=== PATIENT | female | born 1935 | race Caucasian/White ===

== ENCOUNTER 2016-09-28 06:21 | Day surgery (SDC) | payer OTHER ==
[2016-09-13 16:25] VITALS: BMI 23.1
[2016-09-28] MEDS ORDERED: BETAXOLOL HCL 0.25% OPHTHALMIC 10 ML DROPSBTL ONE (07:13)
[2016-09-28] MEDS ORDERED: LIDOCAINE HCL/PF 2% SDV 5ML VIAL ONE (07:13)
[2016-09-28] MEDS ORDERED: BSS (NA/CA/MG/K) BALANCED SALT SOLUTION OPHTH SOLN 15 ML BOTTLE ONE (07:13)
[2016-09-28] MEDS ORDERED: NEO/POLYMYX B SULF/DEXAMETH OPHTHALMIC 5ML BOTTLE ONE (07:14)
[2016-09-28] MEDS ORDERED: EPINEPHrine/PF 1 MG/1 ML (1:1,000) AMPULE ONE (07:14)
[2016-09-28] MEDS ORDERED: BUPIVACAINE HCL/PF 0.5% (5MG/ML) 10 ML VIAL ONE (07:14)
[2016-09-28] MEDS ORDERED: LIDOCAINE HCL 2% JELLY 10 ML CARTRIDGE ONE (07:14)
[2016-09-28] MEDS ORDERED: CARBACHOL 0.01% INTRA-OCULAR 1.5 ML VIAL ONE (07:14)
[2016-09-28] MEDS: FLURBIPROFEN 0.03% OPHTH SOLN 2.5 ML BOTTLE ONE ×4 (07:15→07:30)
[2016-09-28] MEDS: TROPICAMIDE 1% OPHTH SOLN 15 ML BOTTLE ONE ×4 (07:15→07:30)
[2016-09-28] MEDS: PHENYLEPHRINE 2.5% OPHTH SOLN 15 ML BOTTLE ONE ×4 (07:15→07:30)
[2016-09-28] MEDS: CYCLOPENTOLATE HCL 1% OPHTH SOLN 2 ML BOTTLE ONE ×4 (07:15→07:30)
[2016-09-28] MEDS ORDERED: NEO/POLYMYX B SULF/DEXAMETH OPHTHALMIC OINTMENT 3.5 GM ONE (07:44)
[2016-09-28] MEDS ORDERED: MIDAZOLAM HCL 2 MG/2 ML SINGLE DOSE VIAL ONE (08:22)
[2016-09-28] MEDS ORDERED: PROPOFOL 20 ML ONE (08:33)
[2016-09-28] MEDS ORDERED: ACETAMINOPHEN 325 MG TABLET (FP) PO PRN (09:31)
[2016-09-28 11:57] VITALS: TEMP 97.9
[2016-09-28 12:02] VITALS: BP 124/60; PULSE 67
--- NOTE | 2016-09-28 13:28 | OP ---
DATE OF OPERATION: 09/28/2016 TITLE OF PROCEDURE: Planned extracapsular cataract extraction and phacoemulsification and insertion of posterior chamber lens implant of the left eye. SURGEON: Genaro Lund MD DIRECTOR SURGICAL SURGEON: Anny Rawls MD ANESTHESIA: Local standby. OPEN CLAIMS REPRESENTATIVE: Michael Marti MD COMPLICATIONS: None. PREOPERATIVE DIAGNOSIS: Mature cataract, left eye. POSTOPERATIVE DIAGNOSIS: Mature cataract, left eye. FINDINGS AND PROCEDURE: After successful peribulbar anesthesia was given, the patient was prepped and draped in the usual manner to expose the left eye. A lid speculum was inserted, and the microscope brought into position over the eye. A superior fornix-based flap was then fashioned for 12 mm using Vikas scissors and 0.12 forceps and hemostasis achieved with electrocautery. The limbal groove was fashioned for 3 mm and dissecting anterior into clear cornea. A 3-mm blade was used to enter the anterior chamber. Under Viscoat, a 360-degree anterior capsulotomy was performed, and the removed from the eye. Phacoemulsification of entire nucleus was then done in approximately 2 minutes' time, followed by irrigation and aspiration of all cortical material, leaving the entire posterior capsule and a red reflex present. It should be noted that the pupil was myotic during the procedure, making the cataract extraction somewhat difficult but successful. Provisc was then injected into the posterior chamber to deepen the posterior capsule, and then the implant was grasped inspected carefully, found to be free of defects, debris, and flaws. It was then folded, placed in the Provisc-filled cartridge. The cartridge placed in the injector, and the implant was injected into the eye such that the inferior haptic was in the inferior capsular bag and the superior haptic in the superior capsular bag and rotated in the horizontal position with a Sinskey hook. The Provisc was then aspirated out, replaced with Miochol and Miostat and BSS. The wound was closed with 1 loosely-tied 10-0 Ethilon suture. The wound was tested for leakage, and none was found. At this point, the conjunctiva-Tenon flap reapproximated. At this point, the implant was fixated in the capsular bag, centrally located with a round pupil, intact posterior capsule and a red reflex present. Topical Betoptic S and Maxitrol ophthalmic suspensions were placed, as was Maxitrol ophthalmic ointment, and the Tegaderm strips and the lid speculum were removed from the lids. The lids were closed. A patch and shield placed on the eye, and the patient was then discharged from the operating room to the recovery area in good condition, having tolerated the procedure well. Cari [id number]
== END 2016-09-28 10:25 | disposition home or self-care (01) ==
LOC: FASU 06:21
PROVIDERS: ATTEND Ophthalmology
PROC: 08RK3JZ Replacement of Left Lens with Synthetic Substitute, Percutaneous Approach (ICD-10-PCS; principal; 2016-09-28 08:00)
DX: H25.22 Age-related cataract, morgagnian type, left eye (principal)

== ENCOUNTER 2016-12-14 10:51 | Day surgery (SDC) | payer OTHER ==
[2016-12-07 19:14] VITALS: BMI 24.0
[2016-12-14] MEDS ORDERED: PHENYLEPHRINE 2.5% OPHTH SOLN 15 ML BOTTLE ONE (11:04)
[2016-12-14] MEDS ORDERED: CYCLOPENTOLATE HCL 1% OPHTH SOLN 2 ML BOTTLE ONE (11:04)
[2016-12-14] MEDS ORDERED: TROPICAMIDE 1% OPHTH SOLN 15 ML BOTTLE ONE (11:04)
[2016-12-14] MEDS ORDERED: GENTAMICIN SULFATE 0.3% OPHTHALMIC (EYE DROPS) 5ML BOTTLE ONE (11:04)
[2016-12-14] MEDS ORDERED: CYCLOPENTOLATE HCL 1% OPHTH SOLN 2 ML BOTTLE OD ONE ×4 (11:15→11:30)
[2016-12-14] MEDS ORDERED: TROPICAMIDE 1% OPHTH SOLN 15 ML BOTTLE OD ONE ×4 (11:15→11:30)
[2016-12-14] MEDS ORDERED: GENTAMICIN SULFATE 0.3% OPHTHALMIC (EYE DROPS) 5ML BOTTLE OD ONE ×4 (11:15→11:30)
[2016-12-14] MEDS ORDERED: PHENYLEPHRINE 2.5% OPHTH SOLN 15 ML BOTTLE OD ONE ×4 (11:15→11:30)
[2016-12-14] MEDS ORDERED: ACETAMINOPHEN 325 MG TABLET (FP) PO PRN (11:18)
[2016-12-14] MEDS ORDERED: MIDAZOLAM HCL 2 MG/2 ML SINGLE DOSE VIAL ONE (11:59)
[2016-12-14] MEDS ORDERED: KETOROLAC TROMETHAMINE 0.5% 5 ML BOTTLE OPTHALMIC OD SCH (13:45)
[2016-12-14 13:55] VITALS: BP 107/56; PULSE 67; TEMP 98.2
--- NOTE | 2016-12-14 15:55 | OP ---
DATE OF OPERATION: 12/14/2016 TITLE OF PROCEDURE: Planned extracapsular cataract extraction, phacoemulsification, and insertion of posterior chamber lens implant, right eye. SURGEON: Genaro Lund MD HORTICULTURAL AGENT SURGEON: Genaro Lund MD COMPLICATIONS: None. PREOPERATIVE DIAGNOSIS: Cataract, right eye. POSTOPERATIVE DIAGNOSIS: Cataract, right eye. ANESTHESIOLOGIST: Michael Marley MD ANESTHESIA: Local standby. FINDINGS AND PROCEDURE: After successful peribulbar anesthesia was given to the right eye, the patient was prepped and draped in the usual manner to expose the right eye. A lid speculum was inserted, and the microscope was in a position over the eye. It should be ntoed that Tegaderm strips were placed on the lashes. Superior fornix placed. Flap was then fashioned for 12 mm using Vikas scissors and 0.12 forceps. Hemostasis achieved with electrocautery. A limbal groove fashioned for approximately 3 mm with a crescent blade and dissecting anterior to clear cornea. A 3-mm blade was used to enter the anterior chamber. Then, under Viscoat, a 360-degree anterior capsulotomy was performed. It should be noted that the pupil had constricted down to about 5 mm throughout this procedure. Leaflet was removed from the eye. Phacoemulsification was done in bimanual technique in approximately 2 minutes' time, followed by irrigation and aspiration of all cortical material, leaving an intact posterior capsule and a red reflex present. Provisc was injected to the posterior chamber, to deepen the posterior capsule., and then, the implant was inspected carefully, found to be free of defects, flaws, and debris. It was folded, placed in the Provisc-filled cartridge. The cartridge was placed in the injector, and then, the implant was injected into the eye such that the inferior haptic was in the inferior capsular bar and the superior haptic in the superior capsular bag and then rotated in a horizontal position with the Sinskey hook. Provisc was aspirated out. We placed some Miochol, and Miostat, and the wound was closed with single interrupted 10-0 Ethilon suture and tested for leakage, and none was found. The conjunctival tenon flap reapproximated. At this point, the implant was fixated in the capsular bag, centrally located, with a round pupil intact, posterior capsule and a red reflex present. Topical Betoptic gas and Maxitrol ophthalmic suspensions were placed as well as bacitracin ophthalmic ointment, and then, the Tegaderm strips and lid speculum were removed from the lids. The lids were closed, and a patch and shield placed on the eye. The patient was then discharged from the operating room in good condition, having tolerated the procedure well. Cari [id number]
== END 2016-12-14 13:55 | disposition home or self-care (01) ==
LOC: FASU 10:51
PROVIDERS: ATTEND Ophthalmology
PROC: 08RJ3JZ Replacement of Right Lens with Synthetic Substitute, Percutaneous Approach (ICD-10-PCS; principal; 2016-12-14 12:20)
DX: H26.8 Other specified cataract (principal)